=== PATIENT | female | born 1990 | race Caucasian/White ===

== ENCOUNTER 2018-05-17 15:32 | Outpatient (CLI) | payer BC, MEDICAID ==
[~2018-05-17] VITALS: Ht 167.6 cm; Wt 69.1 kg
[2018-05-17 15:46] VITALS: BP 124/74; PULSE 78; TEMP 98.2
[2018-05-17] MEDS ORDERED: PRENATAL MVI (15:51)
== END 2018-05-17 16:35 | disposition home or self-care (01) ==
LOC: LDRO 15:32
DX: O62.9 Abnormality of forces of labor, unspecified (principal); Z3A.38 38 weeks gestation of pregnancy

== ENCOUNTER 2018-05-18 20:31 | Inpatient (IN) | payer BC, MEDICAID ==
[~2018-05-18] VITALS: Ht 162.6 cm; Wt 69.1 kg
[2018-05-18] VITALS (10 sets, daily range): BP systolic 114–139; BP diastolic 69–83; PULSE 64–95; TEMP 98.6–98.8
[~2018-05-18 20:31] MED LIST: PRENATAL MVI
[2018-05-18 22:00] LABS: BASO % 0.2 % (0.0-2.0); EOS % 0.3 % (0-4.0); GRAN # 8.4 (1.4-6.5); GRAN % 74.9 % (42.2-75.2); HEMOGLOBIN 10.6 g/dl (12.5-16.0); LYMPH # 2.2 (1.2-3.4); LYMPH % 19.3 % (20.0-51.0); MEAN CELL VOLUME 79 fl (80.0-100.0); MEAN CORPUSCULAR HEMOGLOBIN 26 pg (27.0-31.0); MEAN CORPUSCULAR HGB CONC 33 g/dl (33.0-37.0); MEAN PLATELET VOLUME 12.1 fl (7.4-10.4); MONO # 0.6 (0.1-0.6); MONO % 4.9 % (1.7-9.3); PLATELET COUNT 184 K/mm3 (130-400); REDCELL DISTRIBUTION WIDTH-CV 13.4 % (11.5-14.5)
[2018-05-18 22:06] LABS: HEMATOCRIT 32.3 % (37.0-47.0)
[2018-05-19] VITALS (40 sets, daily range): BP systolic 96–140; BP diastolic 56–87; PULSE 67–126; TEMP 97.9–98.9
[2018-05-20 07:14] LABS: HEMATOCRIT 29.4 % (37.0-47.0); HEMOGLOBIN 9.4 g/dl (12.5-16.0)
[2018-05-20 09:15] VITALS: BP 127/81; PULSE 75; TEMP 98
[2018-05-20 16:15] VITALS: BP 113/75; PULSE 64; TEMP 98.1
[2018-05-20 20:15] VITALS: BP 123/79; PULSE 84; TEMP 98
[2018-05-21] MEDS ORDERED: FERROUS SU325 MG/TAB PO (08:08)
[2018-05-21] MEDS ORDERED: IBU600 MG PO (08:09)
[2018-05-21] MEDS ORDERED: BREASTPUMP MC (08:11)
[2018-05-21 09:15] VITALS: BP 119/66; PULSE 76; TEMP 97.6
== END 2018-05-21 15:40 | disposition home or self-care (01) | DRG 775 ==
LOC: LDRO 20:31 → LDR 20:50 → OB 20:50
PROVIDERS: Obstetrics & Gynecology
PROC: 10E0XZZ Delivery of Products of Conception, External Approach (ICD-10-PCS; principal; 2018-05-19)
PROC: 0KQM0ZZ Repair Perineum Muscle, Open Approach (ICD-10-PCS; 2018-05-19)
DX: O70.1 Second degree perineal laceration during delivery (principal); Z37.0 Single live birth; O71.82 Other specified trauma to perineum and vulva; Z3A.39 39 weeks gestation of pregnancy; Z22.330 Carrier of Group B streptococcus; O99.02 Anemia complicating childbirth
CPT/HCPCS: J2540; J2590; J7120

== ENCOUNTER 2020-08-03 20:06 | Outpatient (CLI) | payer BC, MEDICAID ==
[~2020-08-03] VITALS: Ht 162.6 cm; Wt 81.4 kg
[~2020-08-03 20:06] MED LIST changes: +BREASTPUMP MC; +FERROUS SU325 MG/TAB PO; +IBU600 MG PO
--- NOTE | 2020-08-03 20:06 | NUR ---
Ambulatory to unit for assessment, accompanied by spouse. Oriented to room, monitor plan of care. Pt reports vaginal bleeding after SVE @ [facility] office today. stating "I went to [employer] after the office and it was hevier than spotting.I called to office and they said to watch it for 1 hour so I went home, an hour away. It hadn't really slowed down and then I passed a small clot so we headed back down here." WVE with scant pink draineaged noted on exam glove.
[2020-08-03 20:25] VITALS: BP 112/72; PULSE 104
--- NOTE | 2020-08-03 21:30 | NUR ---
Repeat SVE with no change noted, scant pink drainage noted on glove, no clots.
--- NOTE | 2020-08-03 21:45 | NUR ---
Discharge instructions reviewed with pt and spouse, queations invited and answered. Ambulatory off unit.
== END 2020-08-03 21:45 | disposition home or self-care (01) ==
LOC: LDR 20:06 → LDRO 20:06
DX: O46.93 Antepartum hemorrhage, unspecified, third trimester (principal); Z3A.36 36 weeks gestation of pregnancy; Z86.19 Personal history of other infectious and parasitic diseases
CPT/HCPCS: OP

== ENCOUNTER 2020-08-11 07:10 | Inpatient (IN) | payer OTHER ==
[2020-08-11] VITALS (32 sets, daily range): BP systolic 99–154; BP diastolic 54–83; PULSE 65–102; TEMP 98.1–99
[~2020-08-11] VITALS: Ht 162.6 cm; Wt 82.7 kg
[2020-08-11] MEDS ORDERED: PEPCID 20MG TAB20 MG PO (07:49)
--- NOTE | 2020-08-11 08:00 | NUR ---
PT HERE FOR INDUCTION OF LABOR. BEING INDUCED EARLY BECAUSE MATERNAL MEDICINE RECOMMENDS. BABY THOUGHT TO BE IUGR AND EARLY TESTING SHOWED MONOSOMY X AND PT DID NOT DO FURTHER TESTING. FHT'S FOUND IN THE 130'S WITH MODERATE VARIABILITY AND ACCELS. IV STARTED IN LEFT HAND WITH LR INFUSING WITHOUT DIFFICULTY. PLAN OF CARE REVIEWED WITH PT AND SPOUSE. CONSENTS SIGNED.
[2020-08-11 08:17] LABS: BASO % 0.2 % (0.0-2.0); EOS # 0.2 (0.0-0.7); EOS % 1.8 % (0-4.0); GRAN # 7.6 (1.4-6.5); GRAN % 71.9 % (42.2-75.2); HEMOGLOBIN 11.5 g/dl (12.5-16.0); LYMPH # 1.9 (1.2-3.4); LYMPH % 18.4 % (20.0-51.0); MEAN CELL VOLUME 82 fl (80.0-100.0); MEAN CORPUSCULAR HEMOGLOBIN 26 pg (27.0-31.0); MEAN CORPUSCULAR HGB CONC 32 g/dl (33.0-37.0); MEAN PLATELET VOLUME 11.3 fl (7.4-10.4); MONO # 0.8 (0.1-0.6); MONO % 7.1 % (1.7-9.3); PLATELET COUNT 232 K/mm3 (130-400); RED BLOOD COUNT 4.45 M/mm3 (4.10-5.30); REDCELL DISTRIBUTION WIDTH-CV 13.8 % (11.5-14.5)
[2020-08-11 08:20] LABS: HEMATOCRIT 36.5 % (37.0-47.0)
--- NOTE | 2020-08-11 08:45 | NUR ---
DR NUÑEZ IN AT 0834. ULTRASOUND PERFORMED BY SHOWING BABY IS HEAD DOWN. SVE /-3. AROM WITH SMALL AMOUNT OF CLEAR FLUID AT 0838. PERICARE PERFORMED.
--- NOTE | 2020-08-11 09:15 | NUR ---
PT WANTING AN EPIDURAL. CALLED MOO WARD, TO COME FOR EPIDURAL PLACEMENT.
--- NOTE | 2020-08-11 10:00 | NUR ---
MOO WARD, IN AT 0954 FOR EPIDURAL PLACEMENT. PT SITTING UP FOR EPIDURAL.
--- NOTE | 2020-08-11 10:29 | NUR ---
EPIDURAL TEST DOSE AT 10:02 WITH NO ABNORMAL SYMPTOMS OBSERVED OR REPORTED.
--- NOTE | 2020-08-11 13:30 | NUR ---
PT FEELING PRESSURE. SVE WITH COMPLETE DILATION AND +2 STATION.
--- NOTE | 2020-08-11 13:51 | NUR ---
PT PREPPED AND POSITIONED FOR DELIVERY. WILTON REMOVED AT 1345. DR NUÑEZ HERE AT 1348. PUSHING STARTED AT 1350 WITH OF FEMALE AT 1351. INFANT TO MOTHER'S CHEST WITH GOOD COLOR AND VIGOROUS CRY. PITOCIN STOPPED AFTER DELIVERY OF .
--- NOTE | 2020-08-11 13:55 | NUR ---
DR NUÑEZ AT BEDSIDE AFTER DELIVERY REPAIRING PERINEUM. SPONTANEOUS DELIVERY OF PLACENTA AT 1354. PITOCIN RESTARTED AT 333ML/HR AFTER DELIVERY OF PLACENTA. FUNDUS FIRM WITH MINIMAL BLEEDING OBSERVED.
--- NOTE | 2020-08-11 16:30 | NUR ---
PT UP TO BATHROOM WITH ASSISTANCE. RIGHT LEG STILL VERY NUMB. TO WHEELCHAIR WITH ASSIST. TO BATHROOM. TRANSFER TO TOILET WITH ASSIST. VOIDS WITHOUT DIFFICULTY. PERICARE PERFORMED. NEW PAD,UNDERWEAR, GOWN IN PLACE. BACK TO WHEELCHAIR AND TRANSFERRED TO ROOM. ADVISED PT TO CALL WHEN SHE NEEDS TO GO TO THE BATHROOM TO HAVE A STAFF MEMBER STANDBY TO ASSIST HER TO THE BATHROOM. PT VERBALIZES UNDERSTANDING.
[2020-08-12] VITALS: BP 140/91; PULSE 85; TEMP 98.3
[2020-08-12 04:50] VITALS: BP 103/68; PULSE 101; TEMP 97.7
[2020-08-12 06:48] LABS: HEMOGLOBIN 10.2 g/dl (12.5-16.0)
[2020-08-12 06:55] LABS: HEMATOCRIT 32.2 % (37.0-47.0)
[2020-08-12 07:30] VITALS: BP 119/86; PULSE 78; TEMP 97.9
[2020-08-12] MEDS ORDERED: IBU600 MG PO (09:22)
[2020-08-12] MEDS ORDERED: PERCOCET 325 MG1 TA2 PO (09:44)
== END 2020-08-12 14:55 | disposition home or self-care (01) | DRG 807 ==
LOC: LDR 07:10 → OB 16:39
PROVIDERS: ADMIT Obstetrics & Gynecology
PROC: 10E0XZZ Delivery of Products of Conception, External Approach (ICD-10-PCS; principal; 2020-08-11)
PROC: 0KQM0ZZ Repair Perineum Muscle, Open Approach (ICD-10-PCS; 2020-08-11)
DX: O36.5930 Maternal care for other known or suspected poor fetal growth, third trimester, not applicable or unspecified (principal); Z37.0 Single live birth; Z3A.37 37 weeks gestation of pregnancy; O70.1 Second degree perineal laceration during delivery; Q96.9 Turner's syndrome, unspecified
CPT/HCPCS: J2590; J7120

== ENCOUNTER 2022-04-22 18:21 | Inpatient (IN) | payer OTHER ==
[~2022-04-22] VITALS: Ht 167.6 cm; Wt 86.8 kg
[~2022-04-22 18:21] MED LIST changes: +PEPCID 20MG TAB20 MG PO; +PERCOCET 325 MG1 TA2 PO
[2022-04-25] VITALS (31 sets, daily range): BP systolic 100–144; BP diastolic 55–80; PULSE 63–103; TEMP 97.7–98.5
[2022-04-25] MEDS ORDERED: PROFERRIN ES12 MG PO (13:30)
[2022-04-25 14:43] LABS: BASO % 0.2 % (0.0-2.0); EOS # 0.1 K/mm3 (0.0-0.7); EOS % 1.5 % (0.0-4.0); GRAN # 5.6 K/mm3 (1.4-6.5); GRAN % 68.3 % (42.2-75.2); HEMATOCRIT 37.8 % (37.0-47.0); HEMOGLOBIN 12.1 g/dl (12.5-16.0); LYMPH # 1.8 K/mm3 (1.2-3.4); LYMPH % 22.1 % (20.0-51.0); MEAN CELL VOLUME 83 fl (80.0-100.0); MEAN CORPUSCULAR HEMOGLOBIN 26 pg (27-31); MEAN CORPUSCULAR HGB CONC 32 g/dl (33.0-37.0); MEAN PLATELET VOLUME 10.9 fl (7.4-10.4); MONO # 0.6 K/mm3 (0.1-0.6); MONO % 7.3 % (1.7-9.3); PLATELET COUNT 200 K/mm3 (130-400); RED BLOOD COUNT 4.58 M/mm3 (4.10-5.30); REDCELL DISTRIBUTION WIDTH-CV 17.2 % (11.5-14.5)
--- NOTE | 2022-04-25 18:28 | NUR ---
PCR.ELANA assumes care. Pt sitting on edge of bed for epidural placement. H<Efrem [employer] in room. 1833 Single shot. See anesthesia record. 1838 To Semi-Fowlers.
--- NOTE | 2022-04-25 20:50 | NUR ---
pt calls out, stating "I think I'm feeling pressure." SVE as noted. 2051 Dr Hagan called to come for delivery. Nsy notifed. 2055 Mickey villalta. SVE -1 station, pt relaxed, not pushing. 2057 Pit[address] off. 2104 [address] Hagan into room. Pt set up and prepped for delivery. [address] Hagan. 2113 Placenta delivers spont and intact with 3 vessel cord. Pitocin gtt to bolus rate. 2118 Perineal repair complete. Pericare performed, ice pack to perineum. Bed together.
--- NOTE | 2022-04-25 21:14 | NUR ---
Placenta delivers spont and intact with 3 vessel cord. Pitocin gtt to bolus rate.
--- NOTE | 2022-04-25 21:45 | NUR ---
pt has take BP cuff off. Stating "I have to have it off to breastfeed".
--- NOTE | 2022-04-25 23:00 | NUR ---
IV to INT.Up to bathroom with steady gait. Voids large amount. Ambulates to room.
[2022-04-26] VITALS: BP 100/62; PULSE 104
[2022-04-26 04:00] VITALS: BP 113/65; PULSE 85; TEMP 97.9
[2022-04-26] MEDS ORDERED: IBU600 MG PO (08:16)
[2022-04-26 08:20] VITALS: BP 120/80; PULSE 76; TEMP 97.9
--- NOTE | 2022-04-26 09:22 | NUR ---
Initial visit; Patient and family thanked [employer] for offering congratulations and God's blessings for the of their son. [employer] Professor [employer] thanked family for choosing [place].
[2022-04-26 17:16] VITALS: BP 105/61; PULSE 63; TEMP 97.5
[2022-04-26 21:55] VITALS: BP 114/75; PULSE 80; TEMP 98
[2022-04-27 08:30] VITALS: BP 125/66; PULSE 62; TEMP 97.9
--- NOTE | 2022-04-27 10:30 | NUR ---
Discharge instructions given, verbalizes understanding.
== END 2022-04-27 10:30 | disposition home or self-care (01) | DRG 807 ==
LOC: OB 04-25 11:07 → LDR 04-25 13:04 → OB 04-25 18:21
PROVIDERS: ADMIT Obstetrics & Gynecology
PROC: 10E0XZZ Delivery of Products of Conception, External Approach (ICD-10-PCS; principal; 2022-04-25)
PROC: 3E033VJ Introduction of Other Hormone into Peripheral Vein, Percutaneous Approach (ICD-10-PCS; 2022-04-25)
PROC: 0HQ9XZZ Repair Perineum Skin, External Approach (ICD-10-PCS; 2022-04-25)
PROC: 10907ZC Drainage of Amniotic Fluid, Therapeutic from Products of Conception, Via Natural or Artificial Opening (ICD-10-PCS; 2022-04-25)
DX: O70.0 First degree perineal laceration during delivery (principal); Z37.0 Single live birth; Z3A.39 39 weeks gestation of pregnancy; Z86.16 Personal history of COVID-19; Z23 Encounter for immunization
CPT/HCPCS: J2590; J7120